=== PATIENT | male | born 1980 | race Caucasian/White ===

== ENCOUNTER 2021-06-29 13:49 | Emergency (ER) | payer MEDICAID ==
[~2021-06-29] VITALS: Ht 167.6 cm; Wt 103.0 kg
[2021-06-29] MEDS ORDERED: KETOROLAC TROMETHAMINE INJ 30 MG/ML VIAL IV ONE (15:30)
[2021-06-29] MEDS ORDERED: PANTOPRAZOLE 40 MG VIAL IV ONE (15:30)
[2021-06-29 15:32] LABS: BASOPHILS # (AUTO) 0.1 K/uL (0.0-0.2); BASOPHILS % (AUTO) 0.7 % (0.0-2.0); EOSINOPHILS % (AUTO) 0.3 % (0.0-6.0); HEMATOCRIT 47 % (39-51); HEMOGLOBIN 16.2 g/dL (13.5-17.5); LYMPHOCYTES # (AUTO) 1.7 K/uL (0.8-4.8); MEAN CORPUSCULAR HGB CONC 35 g/dl (31.0-36.0); MEAN CORPUSCULAR VOLUME 87 fL (80-96); MONOCYTES # (AUTO) 0.5 K/uL (0.1-1.30); MONOCYTES % (AUTO) 4.9 % (2.0-12.0); NEUTROPHILS # (AUTO) 6.9 K/uL (1.8-8.9); NEUTROPHILS % (AUTO) 75.1 % (43.0-81.0); PLATELET COUNT (AUTO) 215 K/uL (150-450); RED BLOOD CELL COUNT(AUTO) 5.35 MIL/uL (4.5-6.0); WHITE BLOOD COUNT (AUTO) 9.1 K/uL (4.3-11.0)
[2021-06-29 16:00] LABS: ALANINE AMINOTRANSFERASE 53 U/L (12-78); ALBUMIN 3.9 g/dL (3.4-5.0); ALKALINE PHOSPHATASE 98 U/L (46-116); ASPARTATE AMINOTRANSFERASE 28 U/L (15-37); BILIRUBIN,DIRECT 0.1 mg/dL (0.0-0.2); BILIRUBIN,TOTAL 0.5 mg/dL (0.2-1.0); CALCIUM, SERUM 8.2 mg/dL (8.5-10.1); CARBON DIOXIDE 23 mmol/L (21-32); CHLORIDE 103 mmol/L (98-107); CREATININE 0.8 mg/dL (0.6-1.3); GLUCOSE 102 mg/dL (74-106); LIPASE 103 U/L (73-393); POTASSIUM 3.7 mmol/L (3.5-5.1); SODIUM SERUM 138 mmol/L (136-145); TOTAL PROTEIN, SERUM 7.5 g/dL (6.4-8.2); UREA NITROGEN, BLOOD 8 mg/dL (7-18)
--- NOTE | 2021-06-29 16:00 | NUR ---
[id number] for substernal chest pain r/t Lue x 2 hrs. 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 On room air, breathing evenly and unlabored. connected to the monitor and pulse ox. kept comfortable, will continue to monitor accordingly.
[2021-06-29] MEDS ORDERED: PANTOPRAZOLE 40 MG VIAL ONE (17:02)
[2021-06-29] MEDS ORDERED: KETOROLAC TROMETHAMINE 15 MG/ML VIAL ONE (17:02)
[2021-06-29] MEDS ORDERED: HYDROCODONE/APAP 5/325MG TABLET PO ONE (17:30)
[2021-06-29] MEDS ORDERED: HYDROCODONE/APAP 5/325MG TABLET ONE (18:12)
[2021-06-29] MEDS ORDERED: OMEP20CA15 PO (18:29)
[2021-06-29] MEDS ORDERED: IBUP-1955 PO (18:30)
[2021-06-29 18:49] VITALS: BP 128/77
--- NOTE | 2021-06-29 18:50 | NUR ---
Patient discharged to home in stable condition. Written and verbal after care instructions given. Patient verbalizes understanding of instruction.IV removed. Catheter intact and site benign. Pressure and 4x4 applied to site. No bleeding noted.
== END 2021-06-29 18:50 | disposition home or self-care (01) ==
LOC: ER 13:54
DX: R07.89 Other chest pain (principal); R10.13 Epigastric pain; K76.0 Fatty (change of) liver, not elsewhere classified; K21.9 Gastro-esophageal reflux disease without esophagitis; F10.10 Alcohol abuse, uncomplicated; Y90.9 Presence of alcohol in blood, level not specified; Z79.899 Other long term (current) drug therapy
CPT/HCPCS: 36415; 71045; 76705; 80048; 80076; 83690; 84484 ×2; 85025; 93005 ×2; 96374; 96375; 99285; C9113; J1885

== ENCOUNTER 2024-09-26 12:03 | Emergency (ER) | payer SELFPAY ==
[~2024-09-26] VITALS: Ht 170.2 cm; Wt 68.0 kg
[~2024-09-26 12:03] MED LIST: IBUP-1955 PO; OMEP20CA15 PO
[2024-09-26 12:12] VITALS: BP 108/72; TEMP 98.3
[2024-09-26] MEDS ORDERED: DOXY100C2 PO (12:27)
[2024-09-26] MEDS ORDERED: CEPH-570 PO (12:27)
[2024-09-26 12:34] VITALS: O2SAT 99
== END 2024-09-26 12:35 | disposition home or self-care (01) ==
LOC: ER 12:09
DX: L03.115 Cellulitis of right lower limb (principal); Z79.899 Other long term (current) drug therapy